=== PATIENT | female | born 1955 | race Caucasian/White ===

== ENCOUNTER 2021-04-26 19:52 | Emergency (ER) | payer MEDICAID ==
[~2021-04-26] VITALS: Ht 157.5 cm; Wt 63.6 kg
[2021-04-26 19:55] VITALS: TEMP 98.3
[2021-04-26] MEDS ORDERED: NORCO 325 MG-51 TAB PO (22:02)
[2021-04-26 22:10] VITALS: BP 144/84; PULSE 74
== END 2021-04-26 22:10 | disposition home or self-care (01) ==
LOC: COL.ER 19:52
DX: S42.351A Displaced comminuted fracture of shaft of humerus, right arm, initial encounter for closed fracture (principal); F17.210 Nicotine dependence, cigarettes, uncomplicated; W07.XXXA Fall from chair, initial encounter

== ENCOUNTER 2021-05-11 09:52 | Day surgery (SDC) | payer MEDICAID ==
[~2021-05-11] VITALS: Ht 157.5 cm; Wt 76.2 kg
[2021-05-11] VITALS (10 sets, daily range): BP systolic 97–143; BP diastolic 65–81; PULSE 83–114; TEMP 98.5
[~2021-05-11 09:52] MED LIST: NORCO 325 MG-51 TAB PO
[2021-05-11 11:02] LABS: BASO # 0.1 K/mm3 (0.0-0.2); BASO % 0.5 % (0.0-2.0); EOS # 0.3 K/mm3 (0.0-0.7); EOS % 2.3 % (0.0-4.0); GRAN # 9.4 K/mm3 (1.4-6.5); GRAN % 78.7 % (42.2-75.2); HEMOGLOBIN 10.5 g/dl (12.5-16.0); LYMPH # 1.7 K/mm3 (1.2-3.4); LYMPH % 13.8 % (20.0-51.0); MEAN CELL VOLUME 91 fl (80.0-100.0); MEAN CORPUSCULAR HEMOGLOBIN 30 pg (27-31); MEAN CORPUSCULAR HGB CONC 32 g/dl (33.0-37.0); MEAN PLATELET VOLUME 10.5 fl (7.4-10.4); MONO # 0.5 K/mm3 (0.1-0.6); MONO % 4.3 % (1.7-9.3); PLATELET COUNT 308 K/mm3 (130-400); RED BLOOD COUNT 3.56 M/mm3 (4.10-5.30); REDCELL DISTRIBUTION WIDTH-CV 13.8 % (11.5-14.5)
[2021-05-11 11:03] LABS: HEMATOCRIT 32.5 % (37.0-47.0)
[2021-05-11] MEDS ORDERED: FLONASE NASAL S16 GM NS (11:03)
[2021-05-11] MEDS ORDERED: COLACE 100100 MG/CAP PO (11:03)
[2021-05-11] MEDS ORDERED: REMERON 15M15 MG/TA1 PO (11:04)
[2021-05-11] MEDS ORDERED: DESYREL 50MG50 MG PO (11:04)
[2021-05-11] MEDS ORDERED: LITHOBID 3300 MG/TAB PO (11:04)
[2021-05-11] MEDS ORDERED: RISPERDAL 1M1 MG/TAB PO (11:04)
[2021-05-11] MEDS ORDERED: AMBIEN 5MG TABLE5 MG PO (11:05)
[2021-05-11] MEDS ORDERED: ZYPREXA 5MG5 MG PO (11:05)
[2021-05-11] MEDS ORDERED: NEURONTIN100 MG/CAP PO (11:05)
[2021-05-11] MEDS ORDERED: XYZAL5 MG PO (11:05)
[2021-05-11] MEDS ORDERED: VOLTAREN GEL 1%1 TU TP (11:06)
[2021-05-11] MEDS ORDERED: FLOVENT 220MCG7.9 GM IH (11:06)
[2021-05-11] MEDS ORDERED: PROVENTIL0.09 MG/A1 IH (11:07)
[2021-05-11 11:20] LABS: CALCIUM 10.7 mg/dL (8.4-10.2); CREATININE, serum 1.04 mg/dL (0.57-1.11); POTASSIUM 4.6 mmol/L (3.5-4.5)
--- NOTE | 2021-05-11 11:25 | NUR ---
AZIZA Gomes was notified of the patient's coarse lung sounds and history of asthma with frequent asthma attacks. She verbalized understanding and orders were obtained for an Albuterol breathing treatment.
--- NOTE | 2021-05-11 11:30 | NUR ---
The nurse attempted to call RT to notify them of the new breathing treatment order. The call was transferred to the 3rd floor RT personnel who stated it she was with a patient and needed to finished their care before coming down. The nurse verbalized understanding and stated that she or the GAS TURBINE MECHANIC would try and call the 2nd floor RT personnel again to notify them of the new order.
--- NOTE | 2021-05-11 11:32 | NUR ---
Ann, SHOWROOM SALESPERSON was notified of the patient's order for a breathing treatment and that the RT who was notified was with another patient and the 2nd floor RT would need to be called again. She verbalized understanding and confirmed the number for the 2nd floor RT.
--- NOTE | 2021-05-11 19:20 | NUR ---
Report from Makayla. Patient to Room 344 post op. Her son arrived to pick her up. He is concerned about her safety to [facility] home. Ortho called & discharge cancelled until tmrw. Patient was up to the bathroom & voided, she was unsteady on her feet. She tolerated dinner without nausea. Vss on O2. Right arm aquacell dressing intact. Numbness noted to arm, block still working. REport to shahid
[2021-05-12 03:28] VITALS: BP 123/65; PULSE 79; TEMP 97.7
--- NOTE | 2021-05-12 07:04 | NUR ---
PT RESTING QUIETLY IN BED @ THIS TIME, HAS SLEPT INTERMITTENTLY. RESPIRATIONS UNLABORED ON 1L O2 VIA NC. PT HAS AMBULATED TO BR NUMEROUS TIMES DURING NIGHT WITH SBA TO URINATE. RIGHT ARM IS IN SLING, DRESSING CDI, ICE PACK APPLIED. BED ALARM HAS BEEN ON FOR SAFETY, PT SEEMS OCCASIONALLY FORGETFUL BUT DOES USE CALL LIGHT APPROPRIATELY MOST OF THE TIME. PT IS PLEASANT ET COOPERATIVE, APPEARS ANXIOUS INTERMITTENTLY. PT STATES THAT SHE QUIT SMOKING 2 DAYS AGO ET TAKES BREATHING TREATMENTS @ HOME Q 2-4HRS FOR ASTHMA. PT HAS MOIST SOUNDING COUGH THAT IS NON-PRODUCTIVE.
[2021-05-12 07:38] VITALS: BP 91/76; PULSE 93; TEMP 99.2
--- NOTE | 2021-05-12 07:59 | NUR ---
Patient resting in bed. Requesting breakfast. She reports 9/10 pain in her arm. Aquacell dressing intact. Sling on. She has been up to the bathroom one assist. Int. Will monitor.
--- NOTE | 2021-05-12 11:31 | NUR ---
Patient resting in bed. Right humerus aquacell dressing CDI. Sling on. Cms intact. rounded this am. Plan for discahrge. Patient sat up in chair & did well with breakfast.
[2021-05-12 11:43] VITALS: BP 119/70; PULSE 81; TEMP 97.2
--- NOTE | 2021-05-12 12:44 | NUR ---
Patient ready for discharge. Patient and her son given discharge education. We reviewed medication list. Patient has pain medication already. Medication safety reviewed. Int dc. Patient dressed. Sling on. Follow up appt reviewed and stressed the importance of calling with any questiosn or concerns. Patient wheeled out with Filler Shredding Machine Loader.
--- NOTE | 2021-05-12 13:07 | NUR ---
Before patient was discharged, building certifier prayed and offered support with patient.
== END 2021-05-12 12:25 | disposition home or self-care (01) ==
LOC: SDCO 09:52 → EDSTATUS 12:00 → SURG 12:00 → SDCO 05-12 12:25
PROVIDERS: Registered Nurse
DX: S42.351A Displaced comminuted fracture of shaft of humerus, right arm, initial encounter for closed fracture (principal); M19.90 Unspecified osteoarthritis, unspecified site; J45.909 Unspecified asthma, uncomplicated; I10 Essential (primary) hypertension; F41.9 Anxiety disorder, unspecified; F32.A Depression, unspecified; F17.210 Nicotine dependence, cigarettes, uncomplicated; W07.XXXA Fall from chair, initial encounter; Z79.82 Long term (current) use of aspirin; Z79.891 Long term (current) use of opiate analgesic; Z83.3 Family history of diabetes mellitus; Z82.49 Family history of ischemic heart disease and other diseases of the circulatory system
CPT/HCPCS: OP; C1713; J0690; J1100; J2704; J2795; J3010; J7120